=== PATIENT | female | born 1930 | race Caucasian/White ===

== ENCOUNTER 2019-01-25 14:41 | Inpatient (IN) | payer OTHER ==
[~2019-01-25] VITALS: Ht 154.9 cm; Wt 76.7 kg
[2019-01-25 14:45] VITALS: BP 139/77
--- NOTE | 2019-01-25 14:52 | NUR ---
PT TO ER BED 8
--- NOTE | 2019-01-25 15:15 | NUR ---
PATIENT BIB AMBULANCE TO ED WITH THE CHIEF C/O INCREASED AGITATION AND BEHAVIOR CHANGE. CO-OPERATIVE AT THIS TIME. ABLE TO GIVE HISTORY. LUNGS WHEEZING. PT C/O COUGH WITH PHLEGM. DENIES BLOOD IN COUGH. DENIES N/V/D. DISTENDED ABDOMEN NOTED. HYPERACTIVE BOWEL SOUND. NO-TENDERNESS PRESENT. SKIN IS PINK/WARM/DRY. AAOX4. HR EVEN AND REGULAR. PT DENIES ANY FEVER, CP, SOB AT THIS TIME. PLACED ON BEDSIDE MONITOR. PATIENT STATES PAIN OF 0/10 AT THIS TIME. VSS. PATIENT POSITIONED FOR COMFORT; HOB ELEVATED; BEDRAILS UP X2; BED DOWN. ER MD MADE AWARE OF PT STATUS.
[2019-01-25] MEDS ORDERED: ALBUTEROL 0.083% 2.5 MG/3 ML NEBU INH ONE (15:35)
[2019-01-25] MEDS ORDERED: MAG SULF 2000 MG/WATER PREMIX 50 ML IV ONE (15:35)
[2019-01-25] MEDS ORDERED: IPRATROPIUM 0.02% 0.5 MG/2.5 ML NEBU INH ONE (15:35)
[2019-01-25] MEDS ORDERED: methylPREDNISolone SS 125 MG/2 ML VIAL IVP ONE (15:35)
[2019-01-25 16:27] LABS: BASOPHILS # (AUTO) 0.1 K/uL (0.00-0.22); BASOPHILS % (AUTO) 0.9 % (0.0-2.0); EOSINOPHILS # (AUTO) 0.2 K/uL (0-0.4); EOSINOPHILS % (AUTO) 3.2 % (0.0-4.0); HEMATOCRIT 44.2 % (36-48); HEMOGLOBIN 14.3 g/dL (12.0-16.0); LYMPHOCYTES # (AUTO) 1.3 K/uL (2.5-16.5); LYMPHOCYTES % (AUTO) 23.5 % (20.5-51.1); MEAN CORPUSCULAR HEMOGLOBIN 29 pg (27-31); MEAN CORPUSCULAR HGB CONC 32 g/dL (33-37); MEAN CORPUSCULAR VOLUME 90.2 fL (80-94); MONOCYTES # (AUTO) 0.9 K/uL (0.8-1.0); MONOCYTES % (AUTO) 16.1 % (1.7-9.3); NEUTROPHILS # (AUTO) 3.1 K/uL (1.8-7.7); NEUTROPHILS % (AUTO) 56.3 % (42.2-75.2); PLATELET COUNT (AUTO) 245 K/uL (140-450); RED CELL DISTRIBUTION WIDTH 14.8 % (11.6-13.7); WHITE BLOOD COUNT (AUTO) 5.6 K/uL (4.8-10.8)
--- NOTE | 2019-01-25 16:33 | NUR ---
NO SOB OR ACUTE RESPIRATORY DISTRESS NOTED. DENIES ANY PAIN. CONTINUE ON MONITOR.
--- NOTE | 2019-01-25 16:41 | NUR ---
PT SATURATING 96% IN ROOM AIR.
[2019-01-25 16:53] LABS: PROTHROMBIN TIME 10.1 secs (10.8-13.4)
[2019-01-25 16:54] LABS: ANION GAP 8.9 (8-16); CARBON DIOXIDE 30.5 mmol/L (21-32); CHLORIDE 108 mmol/L (98-107); GLUCOSE 127 mg/dL (74-106); POTASSIUM 3.4 mmol/L (3.5-5.1); SODIUM SERUM 144 mmol/L (136-145); UREA NITROGEN, BLOOD 10 mg/dL (7-18)
[2019-01-25 16:58] LABS: ALBUMIN 2.9 g/dL (3.4-5.0); ASPARTATE AMINOTRANSFERASE 46 U/L (15-37); TOTAL BILIRUBIN 0.3 mg/dL (0.0-1.0)
[2019-01-25] MEDS ORDERED: ASPI81EC97 PO (17:09)
[2019-01-25] MEDS ORDERED: FERR325E14 PO (17:09)
[2019-01-25] MEDS ORDERED: AMLO5TAB PO (17:09)
[2019-01-25] MEDS ORDERED: GABA300C PO (17:09)
[2019-01-25] MEDS ORDERED: ORE25 PO (17:09)
[2019-01-25] MEDS ORDERED: DOCU-299 PO (17:09)
[2019-01-25] MEDS ORDERED: POLY15SO48 OT (17:09)
[2019-01-25] MEDS ORDERED: FURO-572 PO (17:09)
[2019-01-25] MEDS ORDERED: METO50TE2 PO (17:09)
[2019-01-25] MEDS ORDERED: VITA1TAB44 PO (17:09)
[2019-01-25] MEDS: NACL 0.9% 1,000 ML IV SCH (17:13)
[2019-01-25] MEDS ORDERED: DOCUSATE SODIUM 100 MG GELCAP PO PRN ×2 (17:15→19:10)
[2019-01-25] MEDS ORDERED: ZOLPIDEM 5 MG TAB PO PRN (17:15)
[2019-01-25] MEDS ORDERED: ONDANSETRON 4 MG/2 ML VIAL IM/IVP PRN (17:15)
[2019-01-25] MEDS ORDERED: LORazepam 2 MG/ML VIAL IM/IVP PRN (17:15)
[2019-01-25] MEDS ORDERED: MORPHINE SULFATE 2 MG/ML SYR IVP PRN (17:15)
[2019-01-25] MEDS ORDERED: HYDROcodone/APAP 5/325 MG 1 TAB TAB PO PRN (17:15)
[2019-01-25] MEDS ORDERED: SIMV10TA1 PO (17:22)
[2019-01-25] MEDS ORDERED: VITD1000 PO (17:22)
[2019-01-25] MEDS ORDERED: TRAM50TA1 PO (17:22)
[2019-01-25] MEDS ORDERED: ACET-2619 PO (17:22)
[2019-01-25 17:24] LABS: APPEARANCE,URINE CLEAR (CLEAR); BILIRUBIN,URINE NEGATIVE (NEGATIVE); BLOOD, URINE TRACE-L (NEGATIVE); COLOR,URINE YELLOW (YELLOW); LEUKOCYTE ESTERASE ,URINE TRACE (NEGATIVE); NITRITE, URINE NEGATIVE (NEGATIVE); UGLUCOSE NEGATIVE (NEGATIVE)
[2019-01-25] MEDS ORDERED: ALBUTEROL SULFATE/IPRATROPIU 3 ML SOL IH PRN ×2 (17:25→19:15)
[2019-01-25 17:45] LABS: RBC,URINE 0-5 /HPF (0-5)
[2019-01-25 17:46] LABS: WBC,URINE 16-25 (MOD) /HPF (0-5)
--- NOTE | 2019-01-25 17:48 | NUR ---
PT ALERT, AWAKE AND ORIENTED. NOTED WITH INCREASING HR AND CHANGING RHYTHM. ASYMPTOMATIC. DENIES ANY DIZZINESS OR CHEST PAIN. DENIES NAUSEA, VOMITING. DR. GOMEZ MADE AWARE.
[2019-01-25] MEDS ORDERED: NACL 0.9% 500 ML IV SCH (17:56)
[2019-01-25] MEDS ORDERED: ALBUTEROL SULFATE/IPRATROPIU 3 ML SOL IH SCH (18:00)
[2019-01-25] MEDS ORDERED: NACL 0.9% 1,000 ML IV ONE (18:00)
[2019-01-25 18:25] LABS: MAGNESIUM 2.1 mg/dL (1.8-2.4); PHOSPHORUS 2.5 mg/dL (2.5-4.9); THYROID STIMULATING HORMONE 5.05 uIU/mL (0.34-3.74)
--- NOTE | 2019-01-25 18:28 | NUR ---
DENIES ANY DIZZINESS. DENIES NAUSEA OR VOMITING. DENIES PAIN. AFEBRILE. SPO2 95% IN ROOM AIR.
--- NOTE | 2019-01-25 18:29 | NUR ---
Patient will be admitted to care of Dr. Go. Admited to Tele unit. Will go to room 106B. Belongings list completed.
--- NOTE | 2019-01-25 18:30 | NUR ---
PT TRANSFERRED TO TELE UNIT ROOM VIA [facility] 106B ON STABLE CONDITION. BELONGING TAKEN TO ROOM WITH PT. REPORT GIVEN TO TRANSMISSION SYSTEM OPERATOR EREN RIDER.
--- NOTE | 2019-01-25 18:55 | NUR ---
RECEIVED REPORT FROM ER NURSE MEDARDO-RN AT BEDSIDE. PT RESTING IN BED, AOX3-CONFUSED AND NAMIBIAN SPEAKING, WITH RIGHT AC #20G. USES WHEELCHAIR AT BASELINE. ON DROPLET PRECAUTIONS DUE TO INFLUENZA A+B POSITIVE. DISCUSSED PLAN OF CARE AND PT VERBALIZED UNDERSTANDING. NO S/S OF RESPIRATORY DISTRESS OR DISCOMFORT NOTED AT THIS TIME. ORIENTED PT TO ROOM, BED AND CALL LIGHT. BED IN LOWEST POSITION, BED BREAKS ON, BOTH SIDE RAILS UP AND FALL PRECAUTIONS IN PLACE. BEDSIDE TABLE AND CALL LIGHT ARE WITHIN REACH. WILL CONTINUE TO MONITOR.
[2019-01-25] MEDS ORDERED: METO25TA PO (18:59)
[2019-01-25] MEDS ORDERED: traMADol 50 MG TAB PO PRN (19:10)
[2019-01-25 20:00] VITALS: BP 120/50
--- NOTE | 2019-01-25 20:00 | NUR ---
VITAL SIGNS TAKEN AND TOLERATED WELL. MRSA SWAB COLLECTED. PT C/O HEADACHE- WILL ADMINISTER TYLENOL. NO S/S OF RESPIRATORY DISTRESS OR DISCOMFORT NOTED AT THIS TIME. WILL CONTINUE TO MONITOR.
[2019-01-25] MEDS ORDERED: cefTRIAXone 1,000 MG VIAL ONE (20:26)
[2019-01-25] MEDS: OSELTAMIVIR PHOSPHATE 75 MG CAP PO SCH (20:30)
--- NOTE | 2019-01-25 20:31 | NUR ---
SCHEDULED MEDICATION GIVEN AND TOLERATED WELL. PT REFUSED NEURONTIN AND ZOCOR STATING "THEY NEVER GIVE ME ANY MEDICATION, THEY WONT EVEN GIVE ME A TYLENOL IF I HAVE A HEADACHE!" NO S/S OF RESPIRATORY DISTRESS OR DISCOMFORT NOTED AT THIS TIME. WILL CONTINUE TO MONITOR.
[2019-01-25] MEDS: GABAPENTIN 300 MG CAP PO SCH (20:32)
[2019-01-25] MEDS: SIMVASTATIN 10 MG TAB PO SCH (20:32)
[2019-01-25] MEDS: ACETAMINOPHEN 325 MG TAB PO PRN (20:59)
--- NOTE | 2019-01-25 20:59 | NUR ---
TYLENOL GIVEN FOR HEADACHE. NO S/S OF RESPIRATORY DISTRESS OR DISCOMFORT NOTED AT THIS TIME. WILL CONTINUE TO MONITOR.
[2019-01-25] MEDS ORDERED: OSELTAMIVIR PHOSPHATE 75 MG CAP PO SCH (21:00)
--- NOTE | 2019-01-25 22:00 | NUR ---
PT RESTING IN BED. NO S/S OF RESPIRATORY DISTRESS OR DISCOMFORT NOTED AT THIS TIME. WILL CONTINUE TO MONITOR.
[2019-01-26] VITALS: BP 131/54
--- NOTE | 2019-01-26 | NUR ---
VITAL SIGNS TAKEN AND TOLERATED WELL. NO S/S OF RESPIRATORY DISTRESS OR DISCOMFORT NOTED AT THIS TIME. WILL CONTINUE TO MONITOR.
--- NOTE | 2019-01-26 00:23 | NUR ---
ASSISTED PT WITH LINEN CHANGE DUE TO URINARY INCONTINENCE. REMINDED PT TO USE CALL LIGHT WHEN IN NEED OF HELP OR HAS ANY QUESTIONS. PT VERBALIZED UNDERSTANDING. NO S/S OF RESPIRATORY DISTRESS OR DISCOMFORT NOTED AT THIS TIME. WILL CONTINUE TO MONITOR.
--- NOTE | 2019-01-26 02:00 | NUR ---
PT RESTING IN BED. NO S/S OF RESPIRATORY DISTRESS OR DISCOMFORT NOTED AT THIS TIME. WILL CONTINUE TO MONITOR.
[2019-01-26 04:00] VITALS: BP 113/54
--- NOTE | 2019-01-26 04:00 | NUR ---
VITAL SIGNS TAKEN AND TOLERATED WELL. NO S/S OF RESPIRATORY DISTRESS OR DISCOMFORT NOTED AT THIS TIME. WILL CONTINUE TO MONITOR.
--- NOTE | 2019-01-26 04:20 | NUR ---
ASSISTED PT WITH CHUX CHANGE AFTER URINARY INCONTINENCE. PT TOLERATED WELL. PT STATED THAT EVERY TIME SHE COUGHS, SHE IS INCONTINENT OF URINE.
[2019-01-26] MEDS: methylPREDNISolone SS 125 MG/2 ML VIAL IVP SCH ×3 (04:31→21:01)
[2019-01-26] MEDS: GABAPENTIN 300 MG CAP PO SCH ×3 (04:31→21:05)
--- NOTE | 2019-01-26 04:31 | NUR ---
SCHEDULED MEDICATION GIVEN AND TOLERATED WELL. NO S/S OF RESPIRATORY DISTRESS OR DISCOMFORT NOTED AT THIS TIME. WILL CONTINUE TO MONITOR.
--- NOTE | 2019-01-26 05:33 | NUR ---
PATIENT TRANSFERRED TO ICU BED 7 VIA 100% AMBU BAG AND PLACED BACK TO VENTILATOR ON SAME SETTING Addendum: 01/26/19 at 0537 by Deanna Gonzalez RT WRONG PATIENT ENTRY, DISREGARD RESPIRATORY NOTE
--- NOTE | 2019-01-26 06:00 | NUR ---
PT RESTING IN BED. NO S/S OF RESPIRATORY DISTRESS OR DISCOMFORT NOTED AT THIS TIME. WILL CONTINUE TO MONITOR.
[2019-01-26 06:50] LABS: BASOPHILS % (AUTO) 0.1 % (0.0-2.0); HEMATOCRIT 42.4 % (36-48); HEMOGLOBIN 13.9 g/dL (12.0-16.0); LYMPHOCYTES # (AUTO) 0.9 K/uL (2.5-16.5); MEAN CORPUSCULAR HEMOGLOBIN 29 pg (27-31); MEAN CORPUSCULAR HGB CONC 33 g/dL (33-37); MEAN CORPUSCULAR VOLUME 89.2 fL (80-94); MONOCYTES # (AUTO) 0.1 K/uL (0.8-1.0); MONOCYTES % (AUTO) 2.1 % (1.7-9.3); NEUTROPHILS # (AUTO) 4.2 K/uL (1.8-7.7); NEUTROPHILS % (AUTO) 80.8 % (42.2-75.2); PLATELET COUNT (AUTO) 238 K/uL (140-450); RED BLOOD CELL COUNT(AUTO) 4.75 MIL/uL (4.20-5.40); RED CELL DISTRIBUTION WIDTH 14.1 % (11.6-13.7); WHITE BLOOD COUNT (AUTO) 5.2 K/uL (4.8-10.8)
--- NOTE | 2019-01-26 07:15 | NUR ---
RECEIVED REPORT FROM ACCOUNT DEVELOPER NURSE RN AT BEDSIDE. PT AAOX3, ST HELENIAN/VINCENTIAN SPEAKING. NO S/S OF ACUTE DISTRESS ON ROOM AIR. IV CATH TO AC #20G, PATENT AND INTACT. DROPLET PRECAUTIONS DUE TO INFLUENZA A+B POSITIVE. DISCUSSED PLAN OF CARE AND PT VERBALIZED UNDERSTANDING. BED IN LOWEST POSITION, BED BREAKS ON, BOTH SIDE RAILS UP AND FALL PRECAUTIONS IN PLACE. BEDSIDE TABLE AND CALL LIGHT ARE WITHIN REACH. WILL CONTINUE TO MONITOR.
--- NOTE | 2019-01-26 07:19 | NUR ---
ENDORSED PT CARE TO DAY SHIFT NURSE BEVERLY FOR CONTINUITY OF CARE.
[2019-01-26 07:30] LABS: CARBON DIOXIDE 27.5 mmol/L (21-32); CREATININE 0.9 mg/dL (0.6-1.3); GLUCOSE 207 mg/dL (74-106); UREA NITROGEN, BLOOD 8 mg/dL (7-18)
[2019-01-26 07:33] LABS: CHOL/HDL RATIO 1.9 (1-4.5)
[2019-01-26] MEDS: ALBUTEROL SULFATE/IPRATROPIU 3 ML SOL IH SCH ×3 (07:52→19:23)
[2019-01-26 08:00] VITALS: BP 143/78
--- NOTE | 2019-01-26 08:03 | NUR ---
RECEIVED PATIENT ON ROOM AIR, PULSE OX SAT 94%. SCHEDULED BREATHING TREATMENT ADMINISTERED. TOLERATED TREATMENT WELL. NO ADVERSE SIDE EFFECTS. NO RESPIRATORY DISTRESS NOTED. WILL CONTINUE TO MONITOR.
[2019-01-26 08:20] LABS: ANION GAP 11.9 (8-16); CHLORIDE 105 mmol/L (98-107); POTASSIUM 3.4 mmol/L (3.5-5.1); SODIUM SERUM 141 mmol/L (136-145)
--- NOTE | 2019-01-26 08:26 | NUR ---
PATIENT HAS BEEN SCREENED AND CATEGORIZED MODERATE NUTRITION RISK. PATIENT WILL BE SEEN WITHIN 3-5 DAYS OF ADMISSION. 01/28/19ORIN [address]
[2019-01-26] MEDS ORDERED: CHOLECALCIFEROL 1,000 IU TAB PO SCH (09:00)
[2019-01-26] MEDS ORDERED: guaiFENesin DM 200/20 MG-10 ML 10 ML UDC PO PRN (09:30)
[2019-01-26] MEDS: LACTOBACILLUS RHAMNOSUS GG 1 EACH CAP PO SCH (09:52)
[2019-01-26] MEDS: FUROSEMIDE 20 MG TAB PO SCH (09:52)
[2019-01-26] MEDS: OSELTAMIVIR PHOSPHATE 75 MG CAP PO SCH ×2 (09:52→21:05)
[2019-01-26] MEDS: METOPROLOL 25 MG TAB PO SCH (09:53)
[2019-01-26] MEDS: VIT-B COMP/VIT-C/FOLIC ACID 1 TAB PO SCH (09:53)
[2019-01-26] MEDS: amLODIPine 5 MG TAB PO SCH (09:53)
[2019-01-26] MEDS: HYDROCHLOROTHIAZIDE 25 MG TAB PO SCH (09:54)
[2019-01-26] MEDS: FERROUS SULFATE 325 MG TABEC PO SCH (09:54)
[2019-01-26] MEDS: POLYVINYL ALCOHOL 1.4% OP 15 ML SOL BOTH EYES SCH (09:55)
[2019-01-26] MEDS: NACL 0.9% 1,000 ML IV SCH (09:55)
[2019-01-26] MEDS ORDERED: POTASSIUM CHLORIDE 10 MEQ TABER PO SCH (10:00)
[2019-01-26 12:00] VITALS: BP 142/74
--- NOTE | 2019-01-26 12:00 | NUR ---
VITALS CHECK, PT HAS NO S/S OF ACUTE DISTRESS. DENIES ANY PAIN.
--- NOTE | 2019-01-26 15:30 | NUR ---
PT'S SON IS VISITING, MADE HIM AWARE OF ISOLATION PROTOCOL. PT HAS NO S/S OF DISTRESS. TOLERATING FOOD WELL.
--- NOTE | 2019-01-26 15:35 | NUR ---
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
[2019-01-26 16:00] VITALS: BP 120/69
--- NOTE | 2019-01-26 17:00 | NUR ---
ASSIST PT WITH BRUSHING TEETH. PT ABLE TO BRUSH HER TEETH WITH STANDBY ASSIST.
--- NOTE | 2019-01-26 19:15 | NUR ---
ENDORSED PT TO RAIL CAR OPERATOR RN, PT IN STABLE CONDITION.
--- NOTE | 2019-01-26 19:20 | NUR ---
RECEIVED PATIENT AWAKE LYING WITH HOB ELEVATED. PATIENT IN ISOLATION PRECAUTION INF A+B.RESPIRATION EVEN AND UNLABORED. EXPLAINED PLAN OF CARE. FALL PRECAUTION APPLIED. CALL LIGHT WITHIN REACH. WILL CONTINUE TO MONITOR.
[2019-01-26 20:00] VITALS: BP 136/70
--- NOTE | 2019-01-26 21:00 | NUR ---
SCHEDULE MEDICATION GIVEN TOLERATED. HOB ELEVATED. NO S/S OF DISTRESS NOTED. CALL LIGHT WITHIN REACH. ABLE TO RECOGNIZE HER NEEDS, OBEYS COMMAND. ALL NEEDS ATTENDED.
[2019-01-26] MEDS: guaiFENesin 600 MG TABER PO SCH (21:04)
[2019-01-26] MEDS: SIMVASTATIN 10 MG TAB PO SCH (21:05)
--- NOTE | 2019-01-27 | NUR ---
SEEN PATIENT ASLEEP ON BED. NO S/S OF DISTRESS NOTED. CALL LIGHT WITHIN REACH. WILL CONTINUE TO MONITOR.
--- NOTE | 2019-01-27 02:00 | NUR ---
SEEN PATIENT AWAKE. OFFERED BLANKET FOR COMFORT. NO S/S OF DISTRESS NOTED. ALL NEEDS ATTENDED.
[2019-01-27] MEDS: ACETAMINOPHEN 325 MG TAB PO PRN (03:05)
--- NOTE | 2019-01-27 04:00 | NUR ---
AM CARE DONE. PATIENT CLEANED AND CHANGED . REPOSITIONED.HOB ELEVATED. NO S/S OF DISTRESS. ALL NEEDS ATTENDED.
[2019-01-27] MEDS: GABAPENTIN 300 MG CAP PO SCH ×3 (04:27→20:56)
[2019-01-27] MEDS: methylPREDNISolone SS 40 MG/ML VIAL IVP SCH ×4 (04:27→21:39)
[2019-01-27] MEDS: NACL 0.9% 1,000 ML IV SCH ×2 (04:30→21:45)
[2019-01-27 06:20] LABS: ANION GAP 10.6 (8-16); CARBON DIOXIDE 26.8 mmol/L (21-32); CHLORIDE 106 mmol/L (98-107); CREATININE 0.9 mg/dL (0.6-1.3); GLUCOSE 195 mg/dL (74-106); POTASSIUM 3.4 mmol/L (3.5-5.1); SODIUM SERUM 140 mmol/L (136-145); UREA NITROGEN, BLOOD 9 mg/dL (7-18)
[2019-01-27 06:42] LABS: BASOPHILS # (AUTO) 0.1 K/uL (0.00-0.22); BASOPHILS % (AUTO) 0.8 % (0.0-2.0); EOSINOPHILS # (AUTO) 0.1 K/uL (0-0.4); EOSINOPHILS % (AUTO) 0.7 % (0.0-4.0); HEMATOCRIT 42.4 % (36-48); HEMOGLOBIN 14.3 g/dL (12.0-16.0); LYMPHOCYTES # (AUTO) 0.9 K/uL (2.5-16.5); LYMPHOCYTES % (AUTO) 5.6 % (20.5-51.1); MEAN CORPUSCULAR HEMOGLOBIN 30 pg (27-31); MEAN CORPUSCULAR HGB CONC 34 g/dL (33-37); MEAN CORPUSCULAR VOLUME 89.3 fL (80-94); MONOCYTES # (AUTO) 0.6 K/uL (0.8-1.0); MONOCYTES % (AUTO) 3.9 % (1.7-9.3); NEUTROPHILS # (AUTO) 13.9 K/uL (1.8-7.7); PLATELET COUNT (AUTO) 332 K/uL (140-450); RED BLOOD CELL COUNT(AUTO) 4.75 MIL/uL (4.20-5.40); RED CELL DISTRIBUTION WIDTH 14.7 % (11.6-13.7); WHITE BLOOD COUNT (AUTO) 15.6 K/uL (4.8-10.8)
--- NOTE | 2019-01-27 07:15 | NUR ---
RECEIVED PT REPORT FROM STUDIO DIRECTOR NURSE. PT IS AWAKE IN BED, NO S/S OF ACUTE DISTRESS OR SOB NOTED. PT IS ON ROOM AIR, SKIN IS INTACT. DROPLET ISOLATION IN PLACE. FALL PRECAUTIONS IN PLACE. IV SITE NOTED ON THE R AC, 22 G, INFUSING NS 60 ML/HR. CALL LIGHT WITHIN REACH. WILL CONTINUE TO MONITOR.
--- NOTE | 2019-01-27 07:25 | NUR ---
ENDORSEMENT GIVEN TO AM SHIFT RN AT BEDSIDE. CALL LIGHT WITHIN REACH. PATIENT IN STABLE CONDITION.
[2019-01-27 08:00] VITALS: BP 146/71
[2019-01-27] MEDS: ALBUTEROL SULFATE/IPRATROPIU 3 ML SOL IH SCH ×3 (08:37→19:25)
[2019-01-27] MEDS: POLYVINYL ALCOHOL 1.4% OP 15 ML SOL BOTH EYES SCH (09:00)
[2019-01-27] MEDS: OSELTAMIVIR PHOSPHATE 75 MG CAP PO SCH ×2 (10:55→20:56)
[2019-01-27] MEDS: VIT-B COMP/VIT-C/FOLIC ACID 1 TAB PO SCH (10:56)
[2019-01-27] MEDS: FERROUS SULFATE 325 MG TABEC PO SCH (10:56)
[2019-01-27] MEDS: METOPROLOL 25 MG TAB PO SCH (10:56)
[2019-01-27] MEDS: guaiFENesin 600 MG TABER PO SCH ×2 (10:57→20:56)
[2019-01-27] MEDS: HYDROCHLOROTHIAZIDE 25 MG TAB PO SCH (10:57)
[2019-01-27] MEDS: LACTOBACILLUS RHAMNOSUS GG 1 EACH CAP PO SCH (10:57)
[2019-01-27] MEDS: FUROSEMIDE 20 MG TAB PO SCH (10:57)
[2019-01-27] MEDS: amLODIPine 5 MG TAB PO SCH (10:58)
--- NOTE | 2019-01-27 11:03 | NUR ---
CM NOTE THE PATIENT HAS SECONDARY IEHP. PER IEHP WOLF PATEL, FOR [facility] TO GO BACK TO [facility] AUTH# [id number]. CHARGE NURSE JIL PRESCOTT.
[2019-01-27] MEDS ORDERED: POTASSIUM PHOSPHATE 15 MM in NACL 0.9% 250 ML IV SCH (14:30)
[2019-01-27 16:00] VITALS: BP 129/63
--- NOTE | 2019-01-27 18:45 | NUR ---
PT'S IV HAS DISLODGED. I TRIED INSERTING NEW IV TWICE, WITH NO SUCCESS. WILL ASK THE FOLLOWING SHIFT'S NURSE TO TRY.
--- NOTE | 2019-01-27 18:50 | NUR ---
PT'S FAMILY VISITING AT BEDSIDE.
--- NOTE | 2019-01-27 19:15 | NUR ---
PT ENDORSED TO COLLAR SEPARATOR IN STABLE CONDITION.
--- NOTE | 2019-01-27 19:16 | NUR ---
RECEIVED PT REPORT FROM AM SHIFT NURSE. PT IS AWAKE IN BED, NO S/S OF ACUTE DISTRESS OR SOB NOTED. PT IS ON ROOM AIR, SKIN IS INTACT. DROPLET ISOLATION IN PLACE. FALL PRECAUTIONS IN PLACE. RECEIVED WITH NO IV SITE, PER PREVIOUS SHIFT TRIED 2X, ATTEMPTS FAILED.FALL PRECAUTIONS IN PLACE.BED IN LOWEST POSITION. CALL LIGHT WITHIN REACH. WILL CONTINUE TO MONITOR.
[2019-01-27] MEDS ORDERED: POTASSIUM CHLORIDE 10 MEQ TABER PO SCH (19:30)
[2019-01-27] MEDS: SIMVASTATIN 10 MG TAB PO SCH (20:54)
--- NOTE | 2019-01-27 21:00 | NUR ---
INFORMED THAT NO IV SITE WHEN RECEIVED THE PT. PT ORDERED KDUR TABLETS AND THAT ROCEPHIN TO GIVE ONCE IV INSERTION IS DONE. AWARE.
[2019-01-27] MEDS ORDERED: POTASSIUM CHLORIDE 10 MEQ TABER PO ONE (21:11)
--- NOTE | 2019-01-27 21:24 | NUR ---
TRIED 2X IV INSERTION. PT COMPLAINED. GOT THE ER TO DO IV INSERTION.
--- NOTE | 2019-01-27 21:30 | NUR ---
IV INSERTION STILL ONGOING, SOLUMEDROL HELD TEMPORARILY UNTIL IV INSERTION IS DONE.
--- NOTE | 2019-01-27 21:44 | NUR ---
NEW SITE ON LEFT AC, G 22 .SOLUMEDROL GIVEN AND STARTED MAIN IV, ROCEPHIN ALSO GIVEN IVPB
[2019-01-28] VITALS: BP 113/50
[2019-01-28] MEDS: GABAPENTIN 300 MG CAP PO SCH ×2 (05:31→12:37)
--- NOTE | 2019-01-28 07:10 | NUR ---
RECEIVED PT REPORT FROM IC DESIGNER STANDARD CELLS NURSE AT BEDSIDE. PT CURRENTLY ASLEEP, NO S/S OF ACUTE DISTRESS OR SOB NOTED. PT IS ON ROOM AIR. SKIN IS INTACT. IV SITE NOTED ON THE LAC 22 G, PATENT AND INTACT. PT ON REGULAR DIET, INCONTINENT X 2. DROPLET ISOLATION IN PLACE FOR FLU A& B. FALL PRECAUTIONS IN PLACE. CALL LIGHT IS WITHIN REACH. WILL CONTINUE TO MONITOR.
[2019-01-28] MEDS: ALBUTEROL SULFATE/IPRATROPIU 3 ML SOL IH SCH ×2 (07:15→13:47)
--- NOTE | 2019-01-28 07:15 | NUR ---
ENDORSED PT TO AM SHIFT NURSE FOR CONTINUITY OF CARE. PT IN STABLE CONDITION
--- NOTE | 2019-01-28 07:25 | NUR ---
RECEIVED PATIENT ON ROOM AIR, PULSE OX SAT 97%. SCHEDULED BREATHING TREATMENT ADMINISTERED. TOLERATED TX WELL. NO ADVERSE SIDE EFFECTS. NO RESPIRATORY DISTRESS NOTED. WILL CONTINUE TO MONITOR.
[2019-01-28 07:26] LABS: HEMATOCRIT 42.6 % (36-48); LYMPHOCYTES # (AUTO) 0.6 K/uL (2.5-16.5); LYMPHOCYTES % (AUTO) 3.8 % (20.5-51.1); MEAN CORPUSCULAR HEMOGLOBIN 29 pg (27-31); MEAN CORPUSCULAR HGB CONC 33 g/dL (33-37); MEAN CORPUSCULAR VOLUME 89.5 fL (80-94); MONOCYTES # (AUTO) 0.6 K/uL (0.8-1.0); MONOCYTES % (AUTO) 3.7 % (1.7-9.3); NEUTROPHILS # (AUTO) 15.4 K/uL (1.8-7.7); NEUTROPHILS % (AUTO) 92.5 % (42.2-75.2); PLATELET COUNT (AUTO) 274 K/uL (140-450); RED BLOOD CELL COUNT(AUTO) 4.76 MIL/uL (4.20-5.40); RED CELL DISTRIBUTION WIDTH 14.6 % (11.6-13.7); WHITE BLOOD COUNT (AUTO) 16.7 K/uL (4.8-10.8)
[2019-01-28 08:00] VITALS: BP 115/71
[2019-01-28 08:21] LABS: ANION GAP 13.2 (8-16); CARBON DIOXIDE 25.3 mmol/L (21-32); CHLORIDE 105 mmol/L (98-107); GLUCOSE 244 mg/dL (74-106); POTASSIUM 4.5 mmol/L (3.5-5.1); SODIUM SERUM 139 mmol/L (136-145); UREA NITROGEN, BLOOD 17 mg/dL (7-18)
[2019-01-28] MEDS: HYDROCHLOROTHIAZIDE 25 MG TAB PO SCH (08:42)
[2019-01-28] MEDS: guaiFENesin 600 MG TABER PO SCH (08:42)
[2019-01-28] MEDS: LACTOBACILLUS RHAMNOSUS GG 1 EACH CAP PO SCH (08:42)
[2019-01-28] MEDS: OSELTAMIVIR PHOSPHATE 75 MG CAP PO SCH (08:43)
[2019-01-28] MEDS: METOPROLOL 25 MG TAB PO SCH (08:43)
[2019-01-28] MEDS: VIT-B COMP/VIT-C/FOLIC ACID 1 TAB PO SCH (08:43)
[2019-01-28] MEDS: FERROUS SULFATE 325 MG TABEC PO SCH (08:43)
[2019-01-28] MEDS: FUROSEMIDE 20 MG TAB PO SCH (08:44)
[2019-01-28] MEDS: POLYVINYL ALCOHOL 1.4% OP 15 ML SOL BOTH EYES SCH (08:44)
[2019-01-28] MEDS: amLODIPine 5 MG TAB PO SCH (08:44)
[2019-01-28] MEDS ORDERED: TAM75 PO (10:11)
[2019-01-28] MEDS ORDERED: ROC2I IV (10:11)
[2019-01-28] MEDS ORDERED: LACT1.4C PO (10:12)
--- NOTE | 2019-01-28 12:01 | NUR ---
REPORT GIVEN TO NURSE LAURENT AT [facility] FOR PT'S TRANSFER.
[2019-01-28] MEDS: NACL 0.9% 1,000 ML IV SCH (12:32)
--- NOTE | 2019-01-28 13:57 | NUR ---
FAMILY AT BEDSIDE. SCHEDULED BREATHING TREATMENT ADMINISTERED. TOLERATED TX WELL, NO ADVERSE SIDE EFFECTS. NO RESPIRATORY DISTRESS NOTED. WILL CONTINUE TO MONITOR.
--- NOTE | 2019-01-28 14:05 | NUR ---
PT HAS DISCHARGED TO [facility] VIA [facility]. PT AND PT'S SON WERE GIVEN DC INSTRUCTIONS, PT'S SON SIGNED THE DC DOCUMENTS AND VERNALIZED UNDERSTANDING. IV SITE MAINTAINED FOR IV ABX INFUSIONS AT [facility]. WRIST BANDS REMOVED. PT LEFT WITH ALL HER BELONGINGS IN STABLE CONDITION.
[2019-02-01] MEDS ORDERED: ERGOCALCIFEROL 50,000 IU CAP PO SCH (09:00)
== END 2019-01-28 14:05 | DRG 194 ==
LOC: MED 14:41 → MTU 17:07
PROVIDERS: ADMIT General Practice; ATTEND General Practice
DX: J10.1 Influenza due to other identified influenza virus with other respiratory manifestations (principal); N39.0 Urinary tract infection, site not specified; E44.0 Moderate protein-calorie malnutrition; R65.10 Systemic inflammatory response syndrome (SIRS) of non-infectious origin without acute organ dysfunction; E87.6 Hypokalemia; G62.9 Polyneuropathy, unspecified; K21.9 Gastro-esophageal reflux disease without esophagitis; E78.5 Hyperlipidemia, unspecified; M19.90 Unspecified osteoarthritis, unspecified site; G89.4 Chronic pain syndrome; E66.01 Morbid (severe) obesity due to excess calories; I11.9 Hypertensive heart disease without heart failure; D50.9 Iron deficiency anemia, unspecified; E02 Subclinical iodine-deficiency hypothyroidism; K56.41 Fecal impaction; D72.829 Elevated white blood cell count, unspecified; E83.39 Other disorders of phosphorus metabolism; Z68.31 Body mass index [BMI] 31.0-31.9, adult; Z86.73 Personal history of transient ischemic attack (TIA), and cerebral infarction without residual deficits
CPT/HCPCS: 36415; 36600; 71045; 80048; 80053; 81001; 82140; 82803; 83036; 83605; 83735; 83880; 84100; 84134; 84443; 84484; 85025; 85379; 85610; 85730; 87040; 87081; 87086; 87186; 87804; 93005; 94640; 96374; 99285; J0696; J2920; J2930; J3475; J7030; J7060; J7613; J7620; J7644; Q0092; Q0163